=== PATIENT | male | born 1935 | race Caucasian/White ===

== ENCOUNTER → 2016-05-29 | Outpatient (CLI) | payer MEDICAID ==
[~2016-05-29] VITALS: Ht 167.6 cm; Wt 75.0 kg
[~2016-05-29] MED LIST: ASPI325T PO; ATOR40TA64 PO; BIFI4CAP PO; ESCI10TA47 PO; METO25TA6 PO; NIFEDIPINE OINTMENT TOP; NITR0.4T PO; OXYC-541 PO; PANT40TA27 PO; POLY17PO6 PO; REGADENOSON 0.4mg/5ml INJECTION IV ONE; SALINE FLUSH 10ml SYRINGE ONE; SUCR1TAB PO
--- NOTE | 2016-05-31 07:19 | ESTF ---
DATE 05/29/[address] Antwon Zhang PROCEDURE Pharmacological stress nuclear scan INDICATION Atypical chest pain. The patient has ischemic cardiomyopathy with recent non-STEMI and coronary stents. 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 He presents with atypical chest pain. He has chronic multiple musculoskeletal pains as well and he is a vague historian. DESCRIPTION The patient was injected with technetium-99m Myoview dose of 13.2 mCi. He was unable to exercise on the treadmill. Pharmacological stress was performed by injecting Lexiscan dose of 0.4 mg over 10-20 seconds followed by Tc-99m Myoview dose of 31.1 mCi. Stress and rest perfusion images were obtained per protocol. The patient uses a cane and has chronic back problems, so he is unable to run on treadmill. At the conclusion of the stress phase, when asked about chest pain, he endorsed that, complaining of 4/10 dull ache in the chest that persisted and that did not appear to be related to arm movement. When we were getting ready to give him sublingual nitroglycerin for that, he said he preferred to not have nitro because headache and then he said the pain was down to 2/10 and was gradually going away, so he did not receive any sublingual nitro. We did not see any objective evidence of ischemia. With pharmacological stress, his blood pressure was 130/70, pulse rate 74 beats per minute. Blood pressure response was flat. Heart rate went up to 86 beats per minute which is 62% of age-predicted maximum heart rate. Rest EKG showed sinus rhythm, interventricular conduction delay, occasional PVCs, T-wave abnormality, slight inversion in AVL, left axis deviation. 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 Stress and rest perfusion images were reviewed. There is a severe perfusion defect involving the apex, a very severe perfusion defect involving the entire septum. The mid anterior wall and anterolateral wall exhibit normal myocardial perfusion. The uptake in the inferolateral wall appears mildly reduced without redistribution. Most of the inferior wall exhibits severe perfusion defect without redistribution. The perfusion defects described above all appear fixed on rest images. There is no scintigraphic evidence of reversible ischemia present. Gated images post stress show the best sallie segment in the mid anterior wall. The lateral wall appears hypokinetic in comparison with the rest images where it contracts better. The inferior wall is markedly hypokinetic. The apex is akinetic. Severe ischemic cardiomyopathy is present. Ejection fraction measured 29% on stress images and 36% on rest images. TID ratio was 1.061. No abnormal extracardiac uptake was present. IMPRESSION: 1. Inability to exercise on treadmill. 2. Pharmacological stress nuclear scan associated with 4/10 left-sided dull chest ache, spontaneously improved. Patient refused sublingual nitro due to the history of headache. 3. Electrically negative for ischemia, occasional PVCs present. 4. Stress and rest perfusion images show multiple severe fixed perfusion defects as above including the entire septal wall and most of the inferior wall as well as the apex. Normal perfusion is seen in the mid anterior and anterolateral wall and mild fixed defect is seen in the inferolateral wall. All perfusion defects described above appear fixed without evidence of reversible ischemia. 5. Gated images show findings of ischemic cardiomyopathy, wall motion abnormality as described above. the lateral wall appear hypokinetic on stress images and exhibits better contractility on rest images, LV ejection fraction measured 29% on stress images and 36% on rest images. DISCUSSION AND PLAN Will review results with the patient regarding further management. GAIL
== END ==
LOC: IMA 08:09
PROVIDERS: ATTEND Internal Medicine Cardiovascular Disease
DX: I25.5 Ischemic cardiomyopathy (principal); I25.2 Old myocardial infarction; I49.3 Ventricular premature depolarization; R26.2 Difficulty in walking, not elsewhere classified; R94.39 Abnormal result of other cardiovascular function study; Z95.1 Presence of aortocoronary bypass graft; Z95.5 Presence of coronary angioplasty implant and graft; R07.9 Chest pain, unspecified
CPT/HCPCS: 78452; 93017; A9502; J2785